=== PATIENT | female | born 1940 | race Caucasian/White ===

== ENCOUNTER → 2017-04-15 | Outpatient (CLI) | payer MEDICARE, MEDICAID ==
[2017-04-15 10:21] LABS: AEROMONAS NOT DETECTED (NOT DETECTE); ASTROVIRUS NOT DETECTED (NOT DETECTE); CYCLOSPORA CAYETANENSIS NOT DETECTED (NOT DETECTE); E COLI O157 NOT DETECTED (NOT DETECTE); ENTEROAGGREGATIVE E COLI NOT DETECTED (NOT DETECTE); ENTEROPATHOGENIC E COLI NOT DETECTED (NOT DETECTE); ENTEROTOXIGENIC E COLI NOT DETECTED (NOT DETECTE); NOROVIRUS NOT DETECTED (NOT DETECTE); SAPOVIRUS NOT DETECTED (NOT DETECTE); SHIGA-LIKE TOXIN PROD. E COLI NOT DETECTED (NOT DETECTE); SHIGELLA/ENTEROINVASIVE E COLI NOT DETECTED (NOT DETECTE); VIBRIO CHOLERAE NOT DETECTED (NOT DETECTE)
--- NOTE | 2017-04-16 11:01 | RADIOLOGY REPORT PS360 ---
CT ABD PELVIS W/ CONTRAST CLINICAL INDICATION: Abdominal pain with bright red blood per rectum, colitis COLITIS, ABD PAIN ORDERING PHYSICIAN: CLARISA JEONG MD PATIENT AGE: 76 years COMPARISON: None TECHNIQUE: Axial images obtained with sagittal and coronal reformats. PROCEDURE: Oral Contrast: Redicat IV Contrast: 75 mL [id number] . FINDINGS: Atelectatic or fibrotic changes are present in the lung bases. 4 mm isodense involves the medial segment left hepatic lobe and may be due to small cyst. No other abnormalities of the liver are evident. No calcified gallstones. The spleen, adrenal glands, and pancreas are unremarkable. An 8 mm stone is present in the lower pole the right kidney. There is a 3 cm left renal cyst superiorly. No hydronephrosis or ureteral calculi. Urinary bladder is nondistended. A small diverticulum is present along the superior and right aspect the urinary bladder. No intestinal obstruction or free air. There is diverticulosis of the descending and sigmoid colon with no evidence of diverticulitis. There are some diverticula also noted in the cecal region. Postsurgical changes are present involving the intra-abdominal wall at the inguinal areas. There has been prior hysterectomy. No focal inflammatory change. No acute bony anomalies. Dense calcification involves the aorta without evidence of aneurysm. IMPRESSION: 1. No acute intra-abdominal or pelvic pathology. 2. Right nephrolithiasis. 3. Small bladder diverticulum on the right. 4. Diverticulosis. No evidence of diverticulitis. 5. Other nonacute findings as described above
== END ==
LOC: RAD 04-06 10:30
PROVIDERS: Surgery
DX: K52.9 Noninfective gastroenteritis and colitis, unspecified (principal); R10.9 Unspecified abdominal pain
CPT/HCPCS: Q9967